=== PATIENT | male | born 2005 | race Caucasian/White ===

== ENCOUNTER → 2025-01-14 17:23 | Outpatient (CLI) | payer BC, SELFPAY ==
[2025-01-14 21:35] LABS: Urine Chlamydia NOT DETECTED; Urine N gonorrhoeae NOT DETECTED
== END ==
PROVIDERS: Referring Provider Family Medicine; Visit Provider Family Medicine
DX: Z11.3 Encounter for screening for infections with a predominantly sexual mode of transmission (principal)
CPT/HCPCS: 36415; 87491; 87591